=== PATIENT | female | born 1940 | race Caucasian/White ===

== ENCOUNTER → 2023-11-21 | Emergency (ER) | payer OTHER ==
[~2023-11-21] VITALS: Ht 154.9 cm; Wt 50.0 kg
[2023-11-21] MEDS: ONDANSETRON HCL 4 MG/2 ML VIAL IV ONE (09:10)
[2023-11-21] MEDS: SODIUM CHLORIDE 0.9% 500 ML IV ONE ×4 (09:10→13:30)
[2023-11-21 09:26] LABS: Basophils # (auto) 0.1 10 ^3/uL (0-0.2); Eosinophils # (auto) 0.5 10 ^3/uL (0-0.8); Eosinophils % (auto) 6.5 % (0.0-7.0); Hematocrit 37.2 % (36.0-46.0); Hemoglobin 12.6 g/dL (12.2-16.2); Lymphocytes # (auto) 1.3 10 ^3/uL (0.4-5.4); Mean Corpuscular Hgb Conc. 33.8 g/dL (32.0-36.0); Mean Corpuscular Volume 94.6 fL (80.0-100.0); Monocytes # (auto) 0.4 10 ^3/uL (0-1.3); Monocytes % (auto) 4.7 % (0.0-12.0); Neutrophils # (auto) 5.8 10 ^3/uL (1.6-8.6); Neutrophils % (auto) 71.8 % (37.0-80.0); Nucleated Red Blood Cells % 0.2 %; Platelet Count (auto) 262 10^3/uL (140-450); Red Blood Cells 3.93 10^6/uL (4.0-5.20); Red Cell Distribution Width 15.1 % (11.8-14.3); White Blood Cell 8.1 10^3/uL (4.4-10.8)
[2023-11-21 09:42] LABS: Alanine Aminotransferase 20 U/L (7-40); Albumin 3.6 g/dL (3.2-4.8); Alkaline Phosphatase 81 U/L (46-116); Anion Gap 10 (5-15); Aspartate Aminotransferase 42 U/L (13-40); BUN/Creatinine Ratio 29.3 (10.0-20.0); Blood Urea Nitrogen 24 mg/dL (9-23); Calcium 9.4 mg/dL (8.7-10.4); Carbon Dioxide 22 mmol/L (20-30); Chloride 110 mmol/L (98-107); Glucose 119 mg/dL (74-106); Potassium 3.2 mmol/L (3.5-5.1); Sodium 142 mmol/L (136-145)
[2023-11-21 09:43] LABS: Total Protein 6.6 g/dL (5.7-8.2)
[2023-11-21 09:52] VITALS: PULSE 74; RESP 17; O2SAT 95
[2023-11-21 10:06] LABS: Lactic Acid w/Reflex 2.2 mmol/L (0.4-2.0)
[2023-11-21] MEDS: ASPirin 81 mg TAB PO ONE (12:11)
[2023-11-21 14:38] VITALS: BP 98/51; RESP 16; TEMP 97.9; O2SAT 96
[2023-11-21 14:44] VITALS: PULSE 78
== END | disposition short-term general hospital (02) ==
LOC: ER 08:19 → EDBD 08:19
DX: I95.9 Hypotension, unspecified (principal); R19.7 Diarrhea, unspecified; I11.0 Hypertensive heart disease with heart failure; I50.9 Heart failure, unspecified; E78.5 Hyperlipidemia, unspecified
CPT/HCPCS: 36415; 71045; 80053; 83605; 84484; 85025; 87040; 93005; 96361; 96374; 99285; J2405; J7040